=== PATIENT | male | born 1995 | race Caucasian/White ===

== ENCOUNTER 2018-04-17 19:32 | Emergency (ER) | payer OTHER ==
[~2018-04-17] VITALS: Ht 170.2 cm; Wt 59.1 kg
[2018-04-17 19:43] VITALS: BP 103/53; PULSE 82; RESP 16; Ht 170.2 cm; Wt 59.1 kg
--- NOTE | 2018-04-17 20:20 | ERD ---
ER Documentation Chief Complaint Chief Complaint knuckle/hand pain x30 minutes s/p punching wall. mild swelling HPI 22-year-old male presents here to emergency department for complaints of right hand pain after punching a dresser today, complains of pain throbbing pain, 8/10 scale, as was upon movement accompanied with swelling, denies any numbness or tingling, denies any deformity. Patient denies any fever or chills, did not take any medications to help with symptoms. ROS All systems reviewed and are negative except as per history of present illness. 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 CHEST: Clear to auscultation bilaterally. There are no rales, wheezes or rhonchi. HEART: Regular rate and rhythm. No murmurs, clicks, rubs or gallops. No S3 or S4. ABDOMEN: Soft, nontender and nondistended. Good bowel sounds. No rebound or guarding. No gross peritonitis. No gross organomegaly or masses. No Dunne sign or McBurney point tenderness. BACK: No midline or flank tenderness. EXTREMITIES: Tenderness on palpation of the dorsal aspect of the right hand, more on the fourth and fifth metacarpal area. equal pulses bilaterally. There is no peripheral clubbing, cyanosis or edema. No focal swelling or erythema. Full range of motion. Grossly neurovascularly intact. NEURO: Alert and oriented. Cranial nerves 2-12 intact. Motor strength in all 4 extremities with 5/5 strength. Sensation grossly intact. Normal speech and gait. SKIN: There is no apparent rash or petechia. The skin is warm and dry. HEMATOLOGIC AND LYMPHATIC: There is no evidence of excessive bruising or lymphedema. No gross cervical, axillary, or inguinal lymphadenopathy. Results 24 hrs Current Medications Medications Dose Sig/Leilani Start Time Status Last (Trade) Ordered Route PRN Stop Time Admin Dose Reason Admin Ibuprofen 600 mg ONCE ONCE 04/17/18 DC 04/17/18 (Motrin) PO 20:30 04/17/18 20:09 20:31 Patient was given medication for pain here in emergency department, after treatment, patient verbalized feeling much better. Patient's pain is improved. PROCEDURE: XR Hand. CLINICAL INDICATION: Swelling and right hand pain in fifth metacarpal region TECHNIQUE: PA, oblique and lateral views of the right hand were obtained. COMPARISON: None available. FINDINGS: Mineralization is within normal limits. No fracture or osseous lesion is identified. Joint spaces are preserved. Soft tissue swelling is present at the level of the metacarpal heads best visualized on the lateral projection. No radiopaque foreign body is present. RPTAT:HJJR IMPRESSION: Soft tissue swelling about the metacarpal heads without associated osseous abnormality of the right hand. Physician Kt Date Time Electronically viewed and signed by Physician Kt on 04/17/2018 20:54 JR/ CC: ALBA LUDWIG NP [id number] After receiving patients xray report, a boxer splint was applied on the patients right hand. After application of the splint, patient has intact sensation and circulation on distal area of the affected joint. Patient does not complain of numbness or tingling after application of the splint. Patient tolerated procedure well. Procedures/MDM Medical Decision Making: Patient's pain is most likely consistent with a hand contusion or a sprain. There is no suspicion for neurovascular compromise. Patient has intact sensation and circulation of the affected extremity. There is low suspicion for septic arthritis. Patient does not have any fever. Radiology exams of the affected area does not show any fracture or dislocation. Disposition: Home. Patient is given prescription for ibuprofen for pain. Patient was advised to elevate the affected area and apply ice on affected area. Patient was advised that if symptoms are worse, numbness, tingling, high fever, unable to move joint, worsening symptoms, to return to emergency department immediately. Otherwise, patient is advised to follow up with the primary care doctor in 5-7 days for reevaluation of symptoms. Disclaimer: Inadvertent spelling and grammatical errors are likely due to EHR/dictation software use and do not reflect on the overall quality of patient care. Also, please note that the electronic time recorded on this note does not necessarily reflect the actual time of the patient encounter. Departure Diagnosis: Primary Impression: Hand contusion Encounter type: initial encounter Laterality: right Qualified Codes: S60.221A - Contusion of right hand, initial encounter Condition: Stable Patient Instructions: Contusion, Hand ALBA LUDWIG NP Apr 17, 2018 20:19
[2018-04-17] MEDS ORDERED: IBUPROFEN 600 MG TAB PO ONE (20:30)
[2018-04-17] MEDS ORDERED: IBUP-1542 PO (21:16)
== END 2018-04-17 21:33 | disposition home or self-care (01) ==
LOC: FTE 19:32
DX: S60.221A Contusion of right hand, initial encounter (principal); J45.909 Unspecified asthma, uncomplicated; F17.210 Nicotine dependence, cigarettes, uncomplicated; W22.8XXA Striking against or struck by other objects, initial encounter; Y92.9 Unspecified place or not applicable